=== PATIENT | female | born 1945 | race Caucasian/White ===

== ENCOUNTER 2016-08-08 12:49 | Observation (INO) | payer MEDICARE, BC ==
[~2016-08-08] VITALS: Ht 170.2 cm; Wt 86.8 kg
[~2016-08-08 12:49] MED LIST: AMLODIPINE10 MG OR; ASPIRIN 8181 MG PO; ASTRAGALUS OR; AVELOX400 MG OR; AVELOX400 MG PO; BABY ASPIRIN81 MG OR; CARTIA XT180 MG/24 PO; CIPROFLOXACN500 MG PO; COMBIVENT RESPIMAT IN; COQ10150 MG OR; COZAAR100 MG PO; DILTIAZEM60 M1 PO; DONEPEZIL10 MG PO; FOSAMAX10 MG OR; HYDRALAZINE10 MG PO; IMDUR30 MG PO; IPRATROPIUM BROMIDE/ IN; ISOSORB DIN30 MG OR; ISOSORB MONO30 MG PO; LIPITOR20 MG OR; LORTAB 5/3255 MG PO; LOVASTATIN40 MG PO; METFORMIN500 MG OR; METFORMIN500 MG PO; MONTELUKAST SOD10 MG PO; MULTIVITAMI1 OR; NEXIUM40 M1 PO; NEXIUM40 MG PO; OMEGA-31000 MG OR; ONDANSETRON4 MG PO; OSCAL 500/1 TAB OR; PREDNISONE10 MG PO; PREVACID30 M1 PO; SINGULAIR10 MG OR; SYMBICORT 80-4.5MCG IN; ULTRAM50 M1 PO; [UNRECOGNIZED DRUG - OTHER]; [UNRECOGNIZED DRUG - OTHER] OR
--- NOTE | 2016-08-08 12:49 | NUR ---
PT TO ROOM 15 VIA STRETCHER BY EMS.
[2016-08-08 13:17] LABS: HEMATOCRIT 38.4 % (37.0-47.0); IMMATURE GRANULOCYTES 0.7 % (0.0-1.0); MEAN CELL VOLUME 85.7 fL CALC (80.0-100.0); MEAN CORPUSCULAR HGB CONC 33.9 g/L CALC (32.0-36.0); NEUT# 6.65 thou/uL (2.00-7.15); RED BLOOD COUNT 4.48 mill/uL (4.20-5.60); RED CELL DISTRI WIDTH 15.5 % (11.5-15.5)
[2016-08-08 13:36] LABS: ALBUMIN 4.1 g/dL (3.2-5.0); BILIRUBIN, TOTAL 0.8 mg/dL (0.0-1.4); CALCIUM 9.8 mg/dL (8.4-10.2); CREATININE 1.3 mg/dL (0.5-1.0); POTASSIUM 3.1 mmol/l (3.5-5.1); TOTAL PROTEIN 7.9 g/dL (6.3-8.2)
[2016-08-08 13:45] LABS: INTERNATIONAL NORMALIZED RATIO 0.9 RATIO (0.7-1.3); PROTHROMBIN TIME 10.2 SECONDS (9.0-12.5)
[2016-08-08] MEDS ORDERED: TYLENOL325 MG PO (14:09)
[2016-08-08] MEDS ORDERED: FLUTICASONE50 MCG (14:10)
[2016-08-08] MEDS ORDERED: AMLODIPINE5 MG PO (14:10)
[2016-08-08] MEDS ORDERED: FUROSEMIDE40 MG PO (14:11)
[2016-08-08] MEDS ORDERED: HYDROCHLOROT25 MG PO (14:12)
[2016-08-08] MEDS ORDERED: METOLAZONE2.5 MG PO (14:13)
[2016-08-08] MEDS ORDERED: MILK OF MAG30 ML/UDC PO (14:14)
[2016-08-08] MEDS ORDERED: MINOCIN100 MG PO (14:14)
[2016-08-08] MEDS ORDERED: PATADAY OU (14:15)
[2016-08-08] MEDS ORDERED: PREDNISONE10 MG PO (14:16)
[2016-08-08] MEDS ORDERED: SPIRONOLACT25 MG PO (14:16)
[2016-08-08] MEDS ORDERED: TRAMADOL HCL50 MG PO (14:17)
[2016-08-08] MEDS ORDERED: LANTUS100 MG/ML SC (14:19)
[2016-08-08] MEDS ORDERED: LEVEMIR1000 UNITS SC (14:21)
[2016-08-08 14:23] LABS: URINE BILIRUBIN - DIPSTICK NEGATIVE (NEGATIVE); URINE BLOOD DIPSTICK NEGATIVE (NEGATIVE); URINE CLARITY CLEAR; URINE COLOR YELLOW; URINE GLUCOSE - DIPSTICK NEGATIVE (NEGATIVE); URINE KETONE NEGATIVE (NEGATIVE); URINE LEUK ESTERASE NEGATIVE (NEGATIVE); URINE NITRITE - DIPSTICK NEGATIVE (Negative); URINE PROTEIN - DIPSTICK NEGATIVE (NEG-TRACE); URINE UROBILINOGEN - DIPSTICK 0.2 E.U./dL (0.2)
--- NOTE | 2016-08-08 14:54 | NUR ---
PT PROVIDED BSC, URINE SPECIMEN COLLECTED. NO COMPLAINTS OF CHEST PAIN OR SHORTNESS OF BREATH SINCE ARRIVAL.
--- NOTE | 2016-08-08 16:13 | NUR ---
PT ARRIVED FROM ER VIA STRETCHER ACCOMPANIED BY STAFF. IV SITE IS FREE FROM REDNESS OR EDEMA. TELE MONITOR IN PLACE.
--- NOTE | 2016-08-08 16:24 | NUR ---
PT TAKEN TO ROOM 278 WITHOUT INCIDENT, REPORT WAS TO DEVIN SKINNER.
[2016-08-08 16:55] VITALS: BP 136/64
--- NOTE | 2016-08-08 17:00 | NUR ---
ASSESSMENT IS COMPLETED; IV SITE IS FREE FROM REDNESS OR EDEMA/. TELE MONITOR IN PLACE. CONTINUE TO OBSERVE AND MONITOR.
[2016-08-08 19:00] VITALS: BP 128/72
--- NOTE | 2016-08-08 20:00 | NUR ---
PATIENT RESTING IN BED AT THIS TIME-AWAKE ALERT WITH O2 VIA NASAL CANNULA IN PLACE. PATIENT WITH FLAT AFFECT AND SLOW TO ANSWER QUESTIONS-PATIENT WITH HISTORY OF DEMENTIA. PATIENT DENIES ANY PAIN AT THIS TIME. PATIENT WITH HEP LOCK TO LEFT FOREARMSITE APPEARS HEALTHY WITH GOOD BLOOD RETURN. SAFETY PRECAUTIONS REINFORCED. CALL LIGHT IN REACH. WILL CONT TO MONITOR.
[2016-08-08 23:45] VITALS: BP 125/78
--- NOTE | 2016-08-09 | NUR ---
PATIENT APPEARS SLEEPING WITH EYES CLOSED AT THIS TIME. O2 VIA NASAL CANNULA IN PLACE. CALL LIGHT IN REACH. WILL CONT TO MONITOR.
--- NOTE | 2016-08-09 03:05 | NUR ---
PATIENT C/O RIGHT ARM PAIN-8/10 ON PAIN SCALE. PATIENT MEDICATED WITH ULTRAM 50MG PO FOR PAIN. CALL LIGHT IN REACH. WILL CONT TO MONITOR.
[2016-08-09 03:15] VITALS: BP 124/76
--- NOTE | 2016-08-09 03:15 | NUR ---
PATIENT C/O RIGHT ARM AND CHEST PAIN. VS TAKEN AND UNCHANGED. STAT EKG DONE WITH NO CHANGES NOTED. SKIN IS WARM AND DRY. O2 NASAL CANNULA IN PLACE. PATIENT MEDICATED WITH ULTRAM FOR PAIN. CALL LIGHT IN REACH. WILL CONT TO MONITOR.
--- NOTE | 2016-08-09 04:06 | NUR ---
PATIENT APPEARS SLEEPING IN NO DISTRESS AT THIS TIME. CALL LIGHT IN REACH. WILL CONT TO MONITOR.
[2016-08-09 06:18] LABS: CALCIUM 9.9 mg/dL (8.4-10.2); CREATININE 1.3 mg/dL (0.5-1.0); POTASSIUM 2.7 mmol/l (3.5-5.1)
--- NOTE | 2016-08-09 06:54 | NUR ---
DR. TONEY NOTIFIED OF CO2-40. NO NEW ORDERS RECIEVED.
[2016-08-09 08:11] VITALS: BP 144/69
--- NOTE | 2016-08-09 08:11 | NUR ---
ASSESSMENT IS COMPLETED: IV SITE IS FREE FROM REDNESS OR EDEMA. TELE MONITOR IN PLACE. CONITNUE TO OBSERVE AND MONITOR.
--- NOTE | 2016-08-09 12:15 | NUR ---
IV SITE IS FREE FROM REDNESS OR EDEMA. FAMILY CAME TO VISIT WITH PT. CONTINUE TO OSBERVE AND MONITOR.
[2016-08-09 12:25] VITALS: BP 120/65
[2016-08-09 14:03] LABS: CALCIUM 9.6 mg/dL (8.4-10.2); CREATININE 1.4 mg/dL (0.5-1.0); POTASSIUM 3.5 mmol/l (3.5-5.1)
[2016-08-09 16:15] VITALS: BP 136/69
--- NOTE | 2016-08-09 16:15 | NUR ---
PT IS RELAXING IN BED WITH NO DISTRESS NOTED. IV SITE IS FREE FROM REDNESS OR EDEMA. TELE MONTIOR IN PLACE.
[2016-08-09 19:35] VITALS: BP 124/65
--- NOTE | 2016-08-09 20:00 | NUR ---
PATIENT SITTING UP IN BED AWAKE ALERT AND ORIENTED AT THIS TIME. PATIENT WITH IVF PATENT AND INFUSING VIA LEFT FOREARM IV SITE AT 80CC/HR. O2 VIA NASAL CANNULA IN PLACE. SAFETY PRECAUTIONS REINFORCED. CALL LIGHT IN REACH. WILL CONT TO MONITOR.
[2016-08-09 21:47] VITALS: BP 136/67
--- NOTE | 2016-08-09 21:49 | NUR ---
WHEN PATIENT BEING ASSISTED FROM TOILET IN BR TO STAND BECAME UNSTEADY ON HER FEET WITH BLAST FURNACE OPERATOR PRESENT AND WAS LOWERED TO THE FLOOR. PATIENT WAS THEN ASSISTED TO WHEELCHAIR WITH 3 STAFF MEMBERS AND THEN ASSISTED BACK TO THE BED. PATIENT DENIES ANY INJURIES. PATIENT DID NOT HIT HER HEAD. PATIENT ASSISTED WITH ORAL HYGEINE AND WAS MEDICATED FOR CHRONIC RIGHT SHOULDER PAIN WITH ULTRAM ORDERED FOR PAIN. VS TAKEN AND RECORDED. DR. MOSHER NOTIFIED. SAFETY PRECAUTIONS REINFORCED. CALL LIGHT IN REACH. WILL CONT TO MONITOR.
--- NOTE | 2016-08-10 00:03 | NUR ---
PATIENT APPEARS SLEEPING WITH O2 VIA NASAL CANNULA IN PLACE. IVF PATENT AND INFUSING AT 80CC/HR. CALL LIGHT IN REACH. WILL CONT TO MONITOR.
[2016-08-10 00:05] VITALS: BP 120/64
[2016-08-10 03:40] VITALS: BP 147/85
--- NOTE | 2016-08-10 04:00 | NUR ---
PATIENT APPEARS SLEEPING WITH O2 VIA NASAL CANNULA IN PLACE. IVF PATENT AND INFUSING AT 80CC/HR. CA;LL LIGHT IN REACH. WILL CONT TO MONITOR
[2016-08-10 04:40] VITALS: BP 157/82
[2016-08-10 05:43] LABS: HEMOGLOBIN 10.7 g/dl (12.0-16.0); IMMATURE GRANULOCYTES 1.3 % (0.0-1.0); MEAN CELL VOLUME 89.7 fL CALC (80.0-100.0); MEAN CORPUSCULAR HGB 29.1 pG CALC (26.0-32.0); MEAN CORPUSCULAR HGB CONC 32.4 g/L CALC (32.0-36.0); NEUT# 4.36 thou/uL (2.00-7.15); RED BLOOD COUNT 3.68 mill/uL (4.20-5.60); RED CELL DISTRI WIDTH 15.8 % (11.5-15.5)
[2016-08-10 06:20] LABS: CALCIUM 8.8 mg/dL (8.4-10.2); CREATININE 1.1 mg/dL (0.5-1.0); POTASSIUM 3.3 mmol/l (3.5-5.1)
[2016-08-10 06:22] LABS: ALBUMIN 2.9 g/dL (3.2-5.0); CREATININE 1.1 mg/dL (0.5-1.0); POTASSIUM 3.8 mmol/l (3.5-5.1)
--- NOTE | 2016-08-10 08:05 | NUR ---
ASSESSMENT IS COMPLETED: IV SITE IS FREE FROM REDNESS OR EDEMA. PT'S BACK HAS A RASH. INFORMED RE: RASH. TELE MONITOR IN PLACE. CONTINUE TO OSBERVE AND MONITOR.
--- NOTE | 2016-08-10 08:26 | NUR ---
PT HAS SHINGLES ON HER RIGHT BACK, PLACED PT ON CONTACT.
[2016-08-10 08:31] LABS: ANION GAP 11 (6-22 (CALC)); BUN 29 mg/dL (8-23); BUN/CREATININE RATIO 28 (12-20 (CALC)); CALCIUM 8.8 mg/dL (8.4-10.2); CARBON DIOXIDE 33 mmol/l (22-30); CHLORIDE 91 mmol/l (95-108); GFR 55 ML/MIN (>=60 (CALC)); GFR FOR AFR.AMER. > 60 ML/MIN (>=60 (CALC)); GLUCOSE 111 mg/dL (82-115); SODIUM 131 mmol/l (137-146)
--- NOTE | 2016-08-10 12:00 | NUR ---
PT IS RELAXING IN BED WITH NO DISTRESS NOTED. IV SITE IS FREE FROM REDNESS OR EDEMA.
[2016-08-10 13:16] LABS: HEMATOCRIT 32.8 % (37.0-47.0); HEMOGLOBIN 10.7 g/dl (12.0-16.0); MEAN CELL VOLUME 89.4 fL CALC (80.0-100.0); MEAN CORPUSCULAR HGB 29.2 pG CALC (26.0-32.0); MEAN CORPUSCULAR HGB CONC 32.6 g/L CALC (32.0-36.0); RED BLOOD COUNT 3.67 mill/uL (4.20-5.60); RED CELL DISTRI WIDTH 15.5 % (11.5-15.5)
[2016-08-10 15:59] VITALS: BP 127/65
--- NOTE | 2016-08-10 16:00 | NUR ---
PT IS MOVED TO A DIFFERENT ROOM DUE TO SHINGLES AND HOSPITAL PROTOCOL FOR PRECAUTIONS. PT VERBALIZED UNDERSTANDING.
[2016-08-10 19:35] VITALS: BP 128/53
--- NOTE | 2016-08-10 20:00 | NUR ---
PATIENT RESTING IN BED AT THIS TIME-AWAKE ALERT AND ORIENTEDX3. PATIENT ON AIRBOURNE PRECAUTIONS FOR SHINGLES. PATIENT WITH UNILATERAL RASH TO RIGHT BACK. PATIENT WITH HEP LOCK TO LEFT FOREARM. SITE APPEARS HEALTHY AT THIS TIME. SAFETY PRECAUTIONS REINFORCED. CALL LIGHT IN REACH. WILL CONT TO MONITOR.
[2016-08-10 23:50] VITALS: BP 130/66
--- NOTE | 2016-08-11 | NUR ---
PATIENT APPEARS SLEEPING AT THIS TIME. CALL LIGHT IN REACH. WILL CONT TO MONITOR.
[2016-08-11 03:50] VITALS: BP 130/56
--- NOTE | 2016-08-11 04:30 | NUR ---
PATIENT UP TO BSC TO VOID. PICTURE TAKEN OF RIGHT BACK/BREAST AND PLACED IN CHART. SAFETY PRECAUTIONS REINFORCED. CALL LIGHT IN REACH. WILL CONT TO MONITOR.
[2016-08-11 05:15] LABS: CALCIUM 9.3 mg/dL (8.4-10.2); CREATININE 1.1 mg/dL (0.5-1.0); POTASSIUM 3.5 mmol/l (3.5-5.1)
[2016-08-11] MEDS ORDERED: VALTREX500 MG PO (06:33)
[2016-08-11] MEDS ORDERED: PANTOPRAZOLE SO40 M1 PO (06:34)
[2016-08-11] MEDS ORDERED: LASIX 20 MG20 MG/TAB PO (06:34)
[2016-08-11] MEDS ORDERED: METOCLOPRAM10 MG PO (06:35)
[2016-08-11] MEDS ORDERED: PREDNISONE5 MG PO (06:35)
--- NOTE | 2016-08-11 06:45 | NUR ---
REPORT RECEIVED FROM RICHARD KEYES. PT RESTING COMFORTABY DENIES PAIN AT THIS TIME. VSS. WILL CONTINUE TO MONITOR.
--- NOTE | 2016-08-11 10:32 | NUR ---
PT WAS SEEN RESTING IN BED W/ HOB ELEVATED. PERFORMED AROM EX WHILE SHORT SITTING ON EDGE OF BED. AMBULATED FROM BED TO COUCH AND BACK TO BED WITH RW AND CGA FOR SAFETY. PT APPEARED MORE STEADY/STABLE TODAY ON AMBULATION. LEFT PT W/ CALL RICHARD BESIDE HER. NO ADVERSE RXNS NOTED OR REPORTED AT THE END OF TX.
--- NOTE | 2016-08-11 12:00 | NUR ---
PHOTO OBTAINED PRIOR TO DISCHARGE OF SHINGLES.
--- NOTE | 2016-08-11 12:15 | NUR ---
PT DECLINED ELEUTERIO HERNANDEZ. HAS VISITORS IN ROOM. WILL CALL IF IN DISTRESS.
[2016-08-11 14:04] VITALS: BP 129/49
--- NOTE | 2016-08-11 14:09 | NUR ---
PT ASSISTED TO BSC AT THIS TIME, VOIDED 400CC, PT UPDATED OF MARCIAL OF DEPOARTURE TO [facility], STATES UNDERSTANDING. DENIES CLOTHING, WILL BE D/C'D WITH HOSPITAL GOWN. IV ISTE REMOVED AT THIS TIME, IN REGARDS TO DISCHARGE PLANNING
--- NOTE | 2016-08-11 14:47 | NUR ---
REPORT CALLED TO [facility], SPOKE WITH RICHARD MASCORRO
--- NOTE | 2016-08-11 16:02 | NUR ---
Discharge instructions given. Patient verbalizes understanding of same. Discharged in stable condition via Wheelchair to Home with staff. All belongings sent with pt.
== END 2016-08-11 16:02 ==
LOC: ED 12:49 → ED-I 14:58 → ED 15:31 → MS2 15:32
PROVIDERS: Emergency Medicine; Internal Medicine Nephrology; ADMIT Internal Medicine; ATTEND Internal Medicine
DX: R07.9 Chest pain, unspecified (principal); E11.22 Type 2 diabetes mellitus with diabetic chronic kidney disease; I12.9 Hypertensive chronic kidney disease with stage 1 through stage 4 chronic kidney disease, or unspecified chronic kidney disease; N18.3 Chronic kidney disease, stage 3 (moderate); J44.9 Chronic obstructive pulmonary disease, unspecified; K21.9 Gastro-esophageal reflux disease without esophagitis; E66.9 Obesity, unspecified; G30.9 Alzheimer's disease, unspecified; F02.80 Dementia in other diseases classified elsewhere, unspecified severity, without behavioral disturbance, psychotic disturbance, mood disturbance, and anxiety; E86.0 Dehydration; E87.1 Hypo-osmolality and hyponatremia; E87.6 Hypokalemia; E87.8 Other disorders of electrolyte and fluid balance, not elsewhere classified; E87.3 Alkalosis; G47.33 Obstructive sleep apnea (adult) (pediatric); N17.9 Acute kidney failure, unspecified; E44.0 Moderate protein-calorie malnutrition; B02.9 Zoster without complications; Z87.891 Personal history of nicotine dependence

== ENCOUNTER 2017-07-19 08:00 | Day surgery (SDC) | payer MEDICARE, BC ==
[~2017-07-19] VITALS: Ht 170.2 cm; Wt 71.2 kg
[~2017-07-19 08:00] MED LIST changes: +ALBUTEROL SUL0.083 % IN; +AMLODIPINE5 MG PO; +FLUTICASONE50 MCG; +FUROSEMIDE40 MG PO; +GABAPENTIN100 MG PO; +HYDROCHLOROT25 MG PO; +LANTUS100 MG/ML SC; +LASIX 20 MG20 MG/TAB PO; +LEVEMIR1000 UNITS SC; +METOCLOPRAM10 MG PO; +METOLAZONE2.5 MG PO; +MILK OF MAG30 ML/UDC PO; +MINOCIN100 MG PO; +MIRALAX3350 NF PO; +PANTOPRAZOLE SO40 M1 PO; +PATADAY OU; +PREDNISONE5 MG PO; +SPIRONOLACT25 MG PO; +TRAMADOL HCL50 MG PO; +TYLENOL325 MG PO; +VALTREX500 MG PO
[2017-07-19 13:59] VITALS: BP 134/64
== END 2017-07-19 10:49 | disposition home or self-care (01) ==
LOC: ENDO 08:00
PROVIDERS: ATTEND Surgery
PROC: 0DBL8ZX Excision of Transverse Colon, Via Natural or Artificial Opening Endoscopic, Diagnostic (ICD-10-PCS; principal; 2017-07-19)
DX: Z12.11 Encounter for screening for malignant neoplasm of colon (principal); D12.3 Benign neoplasm of transverse colon

== ENCOUNTER 2017-12-05 06:21 | Day surgery (SDC) | payer MEDICARE, BC ==
[~2017-12-05 06:21] MED LIST changes: +FLONASE AL50 MCG/AC1 NAB; +MINERAL PO; +MULTIVITAMIN AD1 TA1 PO; +PROAIR HFA IN; +SYMBICORT1 AE1 IN
[2017-12-05] MEDS ORDERED: KEFLEX500 MG PO (10:38)
[2017-12-05 10:54] VITALS: BP 100/54
== END 2017-12-05 11:10 | disposition home or self-care (01) ==
LOC: ORM 06:21
PROVIDERS: ATTEND Plastic Surgery
PROC: 0HX6XZZ Transfer Back Skin, External Approach (ICD-10-PCS; principal; 2017-12-05)
PROC: 0HB6XZZ Excision of Back Skin, External Approach (ICD-10-PCS; 2017-12-05)
DX: C44.519 Basal cell carcinoma of skin of other part of trunk (principal)

== ENCOUNTER 2018-07-19 15:18 | Emergency (ER) | payer MEDICARE, BC ==
[~2018-07-19] VITALS: Ht 162.6 cm; Wt 79.0 kg
[~2018-07-19 15:18] MED LIST changes: -ASPIRIN 81 LOW81 MG PO; -LIPITOR10 M1 PO
[2018-07-19] MEDS ORDERED: LIPITOR10 M1 PO (15:40)
[2018-07-19] MEDS ORDERED: ASPIRIN 81 LOW81 MG PO (15:41)
[2018-07-19 16:06] LABS: HEMATOCRIT 39.9 % (37.0-47.0); HEMOGLOBIN 13.2 g/dl (12.0-16.0); IMMATURE GRANULOCYTES 0.2 % (0.0-5.0); MEAN CELL VOLUME 92.8 fL CALC (80.0-100.0); MEAN CORPUSCULAR HGB 30.7 pG CALC (26.0-32.0); MEAN CORPUSCULAR HGB CONC 33.1 g/L CALC (32.0-36.0); NEUT# 4.67 thou/uL (2.00-7.15); RED BLOOD COUNT 4.3 mill/uL (4.20-5.60); RED CELL DISTRI WIDTH 14.1 % (11.5-15.5)
[2018-07-19 16:19] VITALS: BP 220/86
[2018-07-19 16:21] LABS: BILIRUBIN, TOTAL 0.6 mg/dL (0.0-1.4); CREATININE 1.7 mg/dL (0.5-1.0); POTASSIUM 4.6 mmol/l (3.5-5.1)
[2018-07-19 16:24] LABS: ALBUMIN 4.4 g/dL (3.2-5.0); TOTAL PROTEIN 8.1 g/dL (6.3-8.2)
[2018-07-19 16:33] LABS: URINE BILIRUBIN - DIPSTICK NEGATIVE (NEGATIVE); URINE BLOOD DIPSTICK NEGATIVE (NEGATIVE); URINE COLOR YELLOW; URINE GLUCOSE - DIPSTICK NEGATIVE (NEGATIVE); URINE KETONE NEGATIVE (NEGATIVE); URINE LEUK ESTERASE NEGATIVE (NEGATIVE); URINE NITRITE - DIPSTICK NEGATIVE (Negative); URINE PROTEIN - DIPSTICK 100 mg/dL (NEG-TRACE); URINE SPECIFIC GRAVITY 1.015; URINE UROBILINOGEN - DIPSTICK 0.2 E.U./dL (0.2)
== END 2018-07-19 16:35 | disposition short-term general hospital (02) ==
LOC: ED 15:18
PROVIDERS: Emergency Medicine
DX: I44.2 Atrioventricular block, complete (principal); R53.1 Weakness; R42 Dizziness and giddiness; R00.1 Bradycardia, unspecified; I10 Essential (primary) hypertension; E11.9 Type 2 diabetes mellitus without complications; E11.29 Type 2 diabetes mellitus with other diabetic kidney complication; N18.3 Chronic kidney disease, stage 3 (moderate)

== ENCOUNTER → 2018-07-19 | Outpatient (REF) | payer MEDICARE, BC ==
[~2018-07-19] MED LIST changes: +ASPIRIN 81 LOW81 MG PO; +KEFLEX500 MG PO; +LIPITOR10 M1 PO
[2018-07-19 07:50] LABS: URINE BILIRUBIN - DIPSTICK NEGATIVE (NEGATIVE); URINE BLOOD DIPSTICK NEGATIVE (NEGATIVE); URINE COLOR YELLOW; URINE GLUCOSE - DIPSTICK NEGATIVE (NEGATIVE); URINE KETONE NEGATIVE (NEGATIVE); URINE LEUK ESTERASE TRACE (NEGATIVE); URINE NITRITE - DIPSTICK NEGATIVE (Negative); URINE PROTEIN - DIPSTICK 100 mg/dL (NEG-TRACE); URINE SPECIFIC GRAVITY >=1.030; URINE UROBILINOGEN - DIPSTICK 0.2 E.U./dL (0.2)
[2018-07-19 07:51] LABS: HEMATOCRIT 40.8 % (37.0-47.0); MEAN CELL VOLUME 97.1 fL CALC (80.0-100.0); MEAN CORPUSCULAR HGB CONC 31.9 g/L CALC (32.0-36.0); RED BLOOD COUNT 4.2 mill/uL (4.20-5.60); RED CELL DISTRI WIDTH 14.3 % (11.5-15.5)
[2018-07-19 08:12] LABS: URINE SQUAMOUS EPITHELIAL CELL FEW EPI/hpf (0-FEW)
[2018-07-19 08:17] LABS: ALBUMIN 3.6 g/dL (3.2-5.0); BILIRUBIN, TOTAL 0.5 mg/dL (0.0-1.4); CHOLESTEROL HDL RATIO 3.1 (<4.4 (CALC)); CREATININE 1.7 mg/dL (0.5-1.0); POTASSIUM 4.5 mmol/l (3.5-5.1); TOTAL PROTEIN 6.6 g/dL (6.3-8.2)
[2018-07-19 08:43] LABS: TSH, 3RD GENERATION 4.39 uIU/mL (0.47 - 4.68)
== END | disposition home or self-care (01) ==
LOC: LAB 07:31
PROVIDERS: ATTEND Nurse Practitioner
DX: E11.29 Type 2 diabetes mellitus with other diabetic kidney complication (principal); I10 Essential (primary) hypertension; N18.3 Chronic kidney disease, stage 3 (moderate)

== ENCOUNTER 2019-11-17 07:28 | Emergency (ER) | payer MEDICARE ==
[~2019-11-17] VITALS: Ht 162.6 cm; Wt 95.0 kg
[~2019-11-17 07:28] MED LIST changes: +ASPIRIN 81 LOW81 MG PO; +LIPITOR10 M1 PO
[2019-11-17] MEDS ORDERED: NAPROXEN500 MG PO (09:10)
[2019-11-17 09:29] VITALS: BP 158/71
== END 2019-11-17 09:31 | disposition home or self-care (01) ==
LOC: ED 07:28
PROC: 0HQNXZZ Repair Left Foot Skin, External Approach (ICD-10-PCS; principal; 2019-11-17)
DX: S91.312A Laceration without foreign body, left foot, initial encounter (principal); S43.401A Unspecified sprain of right shoulder joint, initial encounter; E11.9 Type 2 diabetes mellitus without complications; I10 Essential (primary) hypertension; W18.2XXA Fall in (into) shower or empty bathtub, initial encounter; Y93.E1 Activity, personal bathing and showering; Y92.002 Bathroom of unspecified non-institutional (private) residence as the place of occurrence of the external cause

== ENCOUNTER 2021-10-05 14:10 | Observation (INO) | payer MEDICARE ==
[~2021-10-05] VITALS: Ht 162.6 cm; Wt 72.0 kg
[~2021-10-05 14:10] MED LIST changes: +NAPROXEN500 MG PO
[2021-10-05 15:20] LABS: ALKALINE PHOSPHATASE 103 u/l (38-126); ANION GAP 14 (6-22 (CALC)); BILIRUBIN, TOTAL 0.6 mg/dL (0.0-1.4); BUN 15 mg/dL (8-23); BUN/CREATININE RATIO 12 (12-20 (CALC)); CARBON DIOXIDE 24 mmol/l (22-30); CHLORIDE 106 mmol/l (95-108); CREATININE 1.2 mg/dL (0.5-1.0); GFR FOR AFR.AMER. 53 ML/MIN (>=60 (CALC)); GFR OTHER RACES 44 ML/MIN (>=60 (CALC)); SGOT/AST 28 u/l (9-36); SODIUM 140 mmol/l (137-146); TOTAL PROTEIN 7.3 g/dL (6.3-8.2)
[2021-10-05 15:30] LABS: HEMATOCRIT 46.3 % (37.0-47.0); HEMOGLOBIN 14.7 g/dl (12.0-16.0); IMMATURE GRANULOCYTES 0.1 % (0.0-5.0); MEAN CELL VOLUME 95.5 fL CALC (80.0-100.0); MEAN CORPUSCULAR HGB 30.3 pG CALC (26.0-32.0); MEAN CORPUSCULAR HGB CONC 31.7 g/dL CAL (32.0-36.0); NEUT# 4.8 thou/uL (2.00-7.15); RED BLOOD COUNT 4.85 mill/uL (4.20-5.60)
[2021-10-05 16:23] LABS: URINE BILIRUBIN - DIPSTICK NEGATIVE (NEGATIVE); URINE BLOOD DIPSTICK NEGATIVE (NEGATIVE); URINE COLOR YELLOW; URINE GLUCOSE - DIPSTICK NEGATIVE (NEGATIVE); URINE KETONE NEGATIVE (NEGATIVE); URINE LEUK ESTERASE NEGATIVE (NEGATIVE); URINE PH 6.5 (4.5-8.0); URINE PROTEIN - DIPSTICK NEGATIVE (NEG-TRACE); URINE UROBILINOGEN - DIPSTICK 0.2 E.U./dL (0.2)
[2021-10-05 16:29] LABS: URINE NITRITE - DIPSTICK NEGATIVE (Negative)
[2021-10-05] MEDS ORDERED: ARICEPT PO (16:57)
[2021-10-05] MEDS ORDERED: ANORO ELLIPTA 61 AER IN (16:58)
[2021-10-05] MEDS ORDERED: BUPROPN HCL300 MG PO (16:58)
[2021-10-05] MEDS ORDERED: PROTONIX40 M2 PO (16:59)
[2021-10-05] MEDS ORDERED: ATORVASTATIN CA10 MG PO (17:00)
[2021-10-05] MEDS ORDERED: MONTELUKAST SOD10 MG PO (17:01)
[2021-10-05] MEDS ORDERED: NORVASC5 M1 PO (17:01)
[2021-10-05] MEDS ORDERED: SPIRONOLACTONE25 MG PO (17:01)
[2021-10-05 20:20] VITALS: BP 157/60
[2021-10-06] VITALS (7 sets, daily range): BP systolic 123–136; BP diastolic 41–49
[2021-10-06 05:42] LABS: HEMOGLOBIN 14.9 g/dl (12.0-16.0); MEAN CELL VOLUME 94.7 fL CALC (80.0-100.0); MEAN CORPUSCULAR HGB 30.7 pG CALC (26.0-32.0); MEAN CORPUSCULAR HGB CONC 32.4 g/dL CAL (32.0-36.0); RED BLOOD COUNT 4.86 mill/uL (4.20-5.60); RED CELL DISTRI WIDTH 15.1 % (11.5-15.5)
[2021-10-06 05:58] LABS: ANION GAP 13 (6-22 (CALC)); BUN 12 mg/dL (8-23); BUN/CREATININE RATIO 13 (12-20 (CALC)); CARBON DIOXIDE 22 mmol/l (22-30); CHLORIDE 108 mmol/l (95-108); CREATININE 0.9 mg/dL (0.5-1.0); GFR FOR AFR.AMER. > 60 ML/MIN (>=60 (CALC)); GFR OTHER RACES > 60 ML/MIN (>=60 (CALC)); POTASSIUM 4.1 mmol/l (3.5-5.1); SODIUM 139 mmol/l (137-146)
[2021-10-06] MEDS ORDERED: CYANOCOBAL1000 MCG/M IM (07:16)
== END 2021-10-06 15:01 | disposition home health service (06) ==
LOC: ED 14:10 → ED-I 16:30 → ED 17:15 → MS2 17:16
PROVIDERS: Family Medicine; ADMIT Hospitalist; ATTEND Hospitalist
DX: R41.0 Disorientation, unspecified (principal); I12.9 Hypertensive chronic kidney disease with stage 1 through stage 4 chronic kidney disease, or unspecified chronic kidney disease; E11.22 Type 2 diabetes mellitus with diabetic chronic kidney disease; N18.30 Chronic kidney disease, stage 3 unspecified; G30.9 Alzheimer's disease, unspecified; F02.80 Dementia in other diseases classified elsewhere, unspecified severity, without behavioral disturbance, psychotic disturbance, mood disturbance, and anxiety; J43.9 Emphysema, unspecified; F41.9 Anxiety disorder, unspecified; F32.A Depression, unspecified; G47.33 Obstructive sleep apnea (adult) (pediatric); E66.9 Obesity, unspecified; K21.9 Gastro-esophageal reflux disease without esophagitis; Z60.2 Problems related to living alone; Z68.27 Body mass index [BMI] 27.0-27.9, adult; Z20.822 Contact with and (suspected) exposure to COVID-19

== ENCOUNTER 2022-05-18 11:37 | Observation (INO) | payer MEDICARE ==
[~2022-05-18] VITALS: Ht 162.6 cm; Wt 77.0 kg
[2022-05-18] VITALS (27 sets, daily range): BP systolic 87–154; BP diastolic 50–96
[~2022-05-18 11:37] MED LIST changes: +ANORO ELLIPTA 61 AER IN; +ARICEPT PO; +ATORVASTATIN CA10 MG PO; +BUPROPN HCL300 MG PO; +CYANOCOBAL1000 MCG/M IM; +NORVASC5 M1 PO; +PROTONIX40 M2 PO; +SPIRONOLACTONE25 MG PO
--- NOTE | 2022-05-18 11:50 | NUR ---
PT TO ROOM W/STEADY GAIT.
[2022-05-18 12:23] LABS: BASO% 0.6 % (0-3); EOS% 3.8 % (0-8); HEMATOCRIT 46.7 % (37.0-47.0); HEMOGLOBIN 15.8 g/dl (12.0-16.0); IMMATURE GRANULOCYTES 0.1 % (0.0-5.0); LYMPH% 29.5 % (15-41); MEAN CELL VOLUME 92.3 fL CALC (80.0-100.0); MEAN CORPUSCULAR HGB 31.2 pG CALC (26.0-32.0); MEAN CORPUSCULAR HGB CONC 33.8 g/dL CAL (32.0-36.0); MONO% 7.5 % (2-13); NEUT# 4.99 thou/uL (2.00-7.15); NEUT% 58.5 % (42-76); RED BLOOD COUNT 5.06 mill/uL (4.20-5.60)
--- NOTE | 2022-05-18 13:00 | NUR ---
PT ON STRETCHER WITHOUT C/O AT THIS TIME. IVF BOLUS INFUSING WITHOUT DIFF. nO CONCERNS AT THIS TIME, AWAITING CT.
[2022-05-18 13:07] LABS: ALBUMIN 4.1 g/dL (3.2-5.0); ALKALINE PHOSPHATASE 143 u/l (38-126); AMYLASE 70 u/l (30-110); ANION GAP 14 (6-22 (CALC)); BILIRUBIN, TOTAL 0.7 mg/dL (0.0-1.4); BUN 20 mg/dL (8-23); BUN/CREATININE RATIO 15 (12-20 (CALC)); CARBON DIOXIDE 25 mmol/l (22-30); CHLORIDE 105 mmol/l (95-108); CREATININE 1.3 mg/dL (0.5-1.0); GFR FOR AFR.AMER. 48 ML/MIN (>=60 (CALC)); GFR OTHER RACES 40 ML/MIN (>=60 (CALC)); LIPASE 73 u/l (23-300); POTASSIUM 4.4 mmol/l (3.5-5.1); SGOT/AST 27 u/l (9-36); SODIUM 140 mmol/l (137-146); TOTAL PROTEIN 7.2 g/dL (6.3-8.2)
--- NOTE | 2022-05-18 14:13 | NUR ---
PT RETURNED FROM CT AND PLACED ON BEDPAN. SAMPLE COLLECTED AND SENT. NO CONCERNS AT THIS TIME
[2022-05-18 14:19] LABS: URINE BILIRUBIN - DIPSTICK NEGATIVE (NEGATIVE); URINE BLOOD DIPSTICK NEGATIVE (NEGATIVE); URINE COLOR YELLOW; URINE GLUCOSE - DIPSTICK NEGATIVE (NEGATIVE); URINE KETONE 15 mg/dL (NEGATIVE); URINE LEUK ESTERASE NEGATIVE (NEGATIVE); URINE PH 5.5 (4.5-8.0); URINE PROTEIN - DIPSTICK NEGATIVE (NEG-TRACE); URINE UROBILINOGEN - DIPSTICK 0.2 E.U./dL (0.2)
[2022-05-18 14:20] LABS: URINE NITRITE - DIPSTICK NEGATIVE (Negative)
--- NOTE | 2022-05-18 15:25 | NUR ---
sOAP SUDS ENEMA GIVEN WITH MINIMAL RESULTS OF SOFT BROWN STOOL.
--- NOTE | 2022-05-18 16:25 | NUR ---
PT RESTING ON STRETCHER WITHOUT C/O VOICED. NAD NOTED.
--- NOTE | 2022-05-18 18:25 | NUR ---
PT TO [facility] BED 260 VIA WC IN STABLE CONDITION. REPORT PROVIDED. IV SITE HEALTHY.
--- NOTE | 2022-05-18 19:05 | NUR ---
1818 REPORT RECEIVED FROM MOOSE IN ER. REPORT GIVEN TO Jarad MEDLEY RN @ 1900. PT HAS NOT ARRIVED TO FLOOR AT THIS TIME @ 1906.
[2022-05-19 03:44] VITALS: BP 122/50
[2022-05-19 03:59] VITALS: BP 122/50
--- NOTE | 2022-05-19 05:57 | NUR ---
PT AX3 VITAS STABLE, TOLRATE SNACKS WELLS, MED GIVEN , CALL LIGHTS WITHIN REACHED, BED ALARM ON, BED LOW POSITION, WILL CONT MONITOR
[2022-05-19 06:31] VITALS: BP 132/52
--- NOTE | 2022-05-19 08:50 | NUR ---
PT RESTING IN HIGH FOWLERS POSITION PT A/O PT ASSESSMENT AND VS COMPLETED. HEART RHYTHMNORM . RESPIRATIONS ON ROOM AIR. PT PERFORMING SELF CARE . IV SITE NOTED NS INFUSING PER EMAR. ALL SAFETY PRECAUTIONS IN PLACE WITH CALL LIGHT INREACH.
--- NOTE | 2022-05-19 10:59 | NUR ---
PT ASSISSTED TO BATHROOM PT HAD MODERATE BM . BROWN FORMED SOFT. DOCUMENTED .
--- NOTE | 2022-05-19 12:44 | NUR ---
PT TO BE DC.
[2022-05-19 14:46] VITALS: BP 136/53
--- NOTE | 2022-05-19 16:20 | NUR ---
PT FAMILY CALLED. FRIEND TO PATTERN ATTENDANT PT UNKNOWN TIME FRAME CRISELDA ROGEL RN INFORMED OF RIDE WAIT TIME.
--- NOTE | 2022-05-19 18:10 | NUR ---
Discharge instructions given. Patient verbalizes understanding of same. Discharged in stable condition via Wheelchair to Home with *Other. All belongings sent with pt.IV REMOVED.
== END 2022-05-19 18:10 ==
LOC: ED 11:37 → ED-I 16:48 → ED 17:01 → MS2 17:02
PROVIDERS: Nurse Practitioner; ADMIT Internal Medicine; ATTEND Internal Medicine
DX: K56.41 Fecal impaction (principal); I12.9 Hypertensive chronic kidney disease with stage 1 through stage 4 chronic kidney disease, or unspecified chronic kidney disease; E11.22 Type 2 diabetes mellitus with diabetic chronic kidney disease; N18.30 Chronic kidney disease, stage 3 unspecified; J43.9 Emphysema, unspecified; G30.9 Alzheimer's disease, unspecified; F02.80 Dementia in other diseases classified elsewhere, unspecified severity, without behavioral disturbance, psychotic disturbance, mood disturbance, and anxiety; K21.9 Gastro-esophageal reflux disease without esophagitis; E66.9 Obesity, unspecified; G47.33 Obstructive sleep apnea (adult) (pediatric)
CPT/HCPCS: J1650; Q9967

== ENCOUNTER 2022-07-04 09:15 | Day surgery (SDC) | payer MEDICARE ==
[~2022-07-04] VITALS: Ht 162.6 cm; Wt 68.9 kg
[~2022-07-04 09:15] MED LIST changes: +LOSARTAN POTASS25 MG PO; +PROLIA60 MG/ML SC; +SERTRALINE25 MG PO
[2022-07-04 11:44] VITALS: BP 144/64
== END 2022-07-04 12:10 | disposition home or self-care (01) ==
LOC: ENDO 09:15 → ORM 10:00 → ENDO 11:00 → ORM 12:05 → ENDO 12:10
PROVIDERS: ATTEND Internal Medicine Gastroenterology
PROC: 0DB38ZX Excision of Lower Esophagus, Via Natural or Artificial Opening Endoscopic, Diagnostic (ICD-10-PCS; principal; 2022-07-04)
PROC: 0DB68ZX Excision of Stomach, Via Natural or Artificial Opening Endoscopic, Diagnostic (ICD-10-PCS; 2022-07-04)
DX: K29.50 Unspecified chronic gastritis without bleeding (principal); K31.7 Polyp of stomach and duodenum; K22.81 Esophageal polyp; K44.9 Diaphragmatic hernia without obstruction or gangrene; I10 Essential (primary) hypertension; E78.5 Hyperlipidemia, unspecified; J44.9 Chronic obstructive pulmonary disease, unspecified; I25.10 Atherosclerotic heart disease of native coronary artery without angina pectoris; E11.22 Type 2 diabetes mellitus with diabetic chronic kidney disease; N18.9 Chronic kidney disease, unspecified; D63.8 Anemia in other chronic diseases classified elsewhere; E11.51 Type 2 diabetes mellitus with diabetic peripheral angiopathy without gangrene

== ENCOUNTER 2022-12-03 22:10 | Observation (INO) | payer MEDICARE, MEDICAID ==
[~2022-12-03] VITALS: Ht 162.6 cm; Wt 80.8 kg
[2022-12-03 22:18] VITALS: BP 143/59
--- NOTE | 2022-12-03 22:22 | NUR ---
PT CAME IN VIA EMS TO ROOM 10 FOR TRIAGE AND CARE. PT WAS LIFTED ONTO THE STRETCHER IN A SCOOP STRETCHER FROM EMS. PT IS IN OBVIOUS PAIN.
[2022-12-03 22:43] LABS: BASO% 0.5 % (0-3); EOS% 3.2 % (0-8); IMMATURE GRANULOCYTES 0.9 % (0.0-5.0); LYMPH% 25.6 % (15-41); MEAN CORPUSCULAR HGB 29.2 pG CALC (26.0-32.0); MEAN CORPUSCULAR HGB CONC 32.1 g/dL CAL (32.0-36.0); MONO% 7.8 % (2-13); NEUT# 6.79 thou/uL (2.00-7.15); RED BLOOD COUNT 4.35 mill/uL (4.20-5.60); RED CELL DISTRI WIDTH 13.6 % (11.5-15.5)
[2022-12-03 22:45] LABS: HEMATOCRIT 39.6 % (37.0-47.0); HEMOGLOBIN 12.7 g/dl (12.0-16.0)
[2022-12-03 22:54] VITALS: BP 149/73
[2022-12-03 22:58] LABS: ALBUMIN 3.7 g/dL (3.2-5.0); CREATININE 1.5 mg/dL (0.5-1.0); POTASSIUM 4.4 mmol/l (3.5-5.1); TOTAL PROTEIN 6.8 g/dL (6.3-8.2)
[2022-12-03 22:59] LABS: BILIRUBIN, TOTAL 0.3 mg/dL (0.02-1.3)
[2022-12-03 23:01] VITALS: BP 160/69
[2022-12-03 23:35] VITALS: BP 142/57
--- NOTE | 2022-12-03 23:42 | NUR ---
PT BACK IN RM, FOLLOWING CT, AT THIS TIME. PT IS IN PAIN SCREAMING OUT WITH ANY MOVEMENT OF R HIP OR R ARM. WILL CONTINUE TO MONITOR.
[2022-12-03 23:45] VITALS: BP 140/55
[2022-12-04] VITALS (11 sets, daily range): BP systolic 117–145; BP diastolic 45–61
--- NOTE | 2022-12-04 00:56 | NUR ---
PT RSTING IN BED WITH NAD AND VSS. PT MEDICATED FOR PAIN IN HER RHIP AND R SHOULDER. CAREGIVER AT BEDSIDE. WILL CONTINUE TO MONITOR.
--- NOTE | 2022-12-04 01:22 | NUR ---
PT BEING ADMITTED, CAREGIVER, ISABELLA JENSEN , MADE AWARE. PT PUT IN GOWN AND REPORT GIVEN.
--- NOTE | 2022-12-04 01:50 | NUR ---
PT ARRIVE TO UNIT ROOM 260 VIA STRECTER ACCOMPANIED BY ER STAFF. PT HAS FX TO PELVIS AND RIGHT SHOULDER. PT C/O OF PAIN WITH MOVEMENT. PT MEICATED IN ED. PT A&OX2 ABLE TO MAKES NEEDS KNOW AND FORTGETFUL. PT HAS AN ARM SLING TO RIGHT ARM. SKIN TEAR NOTED TO RIGHT WRIST. AREA CLEAN AND NON ADHISIVE DRESSING APPLIED. NO OTHER WOUNDS NOTED. PT CAN NOT TURN OR REPOSITION DUE TO FX AND PAIN. PT IS AT ROOM AIR. IV TO LFA 2OG PATENT AND FLUSHES WELL. PULSES PRESENT IN ALL EXTREMITIES. PIREWICK IN PLACE. CALL LIGHT IN REACH AND EBD IN LOWEST POSITION.
--- NOTE | 2022-12-04 01:51 | NUR ---
PT STATES BEEN A JEHOVAH WITNESS.
--- NOTE | 2022-12-04 02:00 | NUR ---
PT TRANSFERED TO [facility] RM 260 BY STRETCHZULY. PT STILL IN OBVIOUS PAIN BUT MADE COMFORTABLE POSSIBLE. KITTY RN, JOANNE REYESA AND CAMILA RAMOS ASSISTED IN MOVING PT OVER TO BED.
--- NOTE | 2022-12-04 02:20 | NUR ---
PT C/O HEADACHE DR PETER NOTIFIED AND ORDERED TYNELOL. ORDER FAX TO [facility].
--- NOTE | 2022-12-04 04:56 | NUR ---
PT IN BED AWAKE. BREATHING EVEN AND UNLABOED. REPORT PAIN WITH MOVEMENT AND A HEADACHE THAT IMPROVE AFTER TYLENOL. CALL LIGHT IN REACH AND BED IN LOWEST POSITION.
--- NOTE | 2022-12-04 08:00 | NUR ---
PT IN BED AWAKE AND ALERT X 2. PT C/O PAIN IN RIGHT SHOULDER AND PELVIS AT 8/10 ON PAIN SCALE, WILL MEDICATE WITH TYLENOL WHEN DUE. PT IV SITE # TO LFA CLEAN AND INTACT WITH NS @ 125 ML/HR INFUSING. LUNGS CLEAR. ABD SOFT WITH BS ACTIVE. PT HAS PUREWICK IN PLACE WILL MONITOR FOR OUTPUT. PT HAS CALL LIGHT WITHIN REACH AND ALL SAFETY MEASURES IN PLACE AT THIS TIME.
--- NOTE | 2022-12-04 12:00 | NUR ---
PT IN BED WITH HOB UP, ALERT AND ORIENTED; EATING LUNCH. PT WITH FRIEND AT BEDSIDE. C/O PAIN IN RIGHT SHOULDER AT 5/10 ON PAIN SCALE. WILL MEDICATE WITH PRN TYLENOL WHEN DUE. 600 ML OF CLEAR, YELLOW URINE OUTPUT FROM PUREWICK NOTED. PT HAS CALL LIGHT WIHTIN REACH AND ALL SAFETY MEASURES IN PLACE AT THIS TIME.
--- NOTE | 2022-12-04 16:00 | NUR ---
PT IN BED WITH HOB UP C/O PAIN AT 7/10 ON PAIN SCALE IN RIGHT SHOULDER AND LEFT LEG. TYLEMOL GIVEN ORDERED. PT HAS CALL LIGHT WIHTIN REACH AND ALL SAFETY MEASURES IN PLACE AT THIS TIME.
[2022-12-04 17:43] LABS: HEMATOCRIT 37.5 % (37.0-47.0); HEMOGLOBIN 11.9 g/dl (12.0-16.0); MEAN CELL VOLUME 92.4 fL CALC (80.0-100.0); MEAN CORPUSCULAR HGB 29.3 pG CALC (26.0-32.0); MEAN CORPUSCULAR HGB CONC 31.7 g/dL CAL (32.0-36.0); RED BLOOD COUNT 4.06 mill/uL (4.20-5.60); RED CELL DISTRI WIDTH 13.8 % (11.5-15.5)
[2022-12-04 17:56] LABS: CREATININE 1.3 mg/dL (0.5-1.0); POTASSIUM 4.9 mmol/l (3.5-5.1)
--- NOTE | 2022-12-04 19:50 | NUR ---
PT IN BED. PT C/O OF EXTREME PAIN AFTER CARE AND REPOSITION. PT MEDICATED ORDER PER JUN. SHITF ASSESSMNET COMPLETED. BREATHING IS EVEN AND UNLABORED. IV TO LFA 2OG. ROOM AIR. NO OTHER NEEDS OR CONCERN VOICED AT THIS TIME.
--- NOTE | 2022-12-05 00:45 | NUR ---
PT IN BED RESTING WITH EYES CLOSED BREATHING EVEN AND UNLABORED. NO S/S OF DISTGRESS NOTED CALL LIGHT IN REACGH AND BED IN LOWEST POSITION.
[2022-12-05 04:07] VITALS: BP 139/40
--- NOTE | 2022-12-05 04:16 | NUR ---
PT IN BED AWAKE. NO S/S OF DISTRESS NOTED. PT DENIES PAIN LONGEST SHE DOES NOT MOVE TO MUCH. BREATHING IS EVEN AND UNLABORED.
[2022-12-05 06:12] LABS: HEMATOCRIT 36.7 % (37.0-47.0); HEMOGLOBIN 11.7 g/dl (12.0-16.0); MEAN CELL VOLUME 94.1 fL CALC (80.0-100.0); MEAN CORPUSCULAR HGB CONC 31.9 g/dL CAL (32.0-36.0); RED BLOOD COUNT 3.9 mill/uL (4.20-5.60); RED CELL DISTRI WIDTH 14.1 % (11.5-15.5)
[2022-12-05 06:22] LABS: CREATININE 1.1 mg/dL (0.5-1.0); POTASSIUM 4.7 mmol/l (3.5-5.1); TOTAL PROTEIN 5.8 g/dL (6.3-8.2)
[2022-12-05 06:28] LABS: BILIRUBIN, TOTAL 0.6 mg/dL (0.02-1.3)
[2022-12-05 07:46] VITALS: BP 133/41
--- NOTE | 2022-12-05 08:00 | NUR ---
PT IN BED WITH HOB EATING BREAKFAST. PT IS ALERT AND ORIENTED X 2. PT HAS NO C/O PAIN AT THIS TIME. PT IV SITE # 20 TO LFA CLEAN AND INTACT WITH 125 ML/HR INFUSING. PT LUNGS CLEAR. BS ACTIVE. PUREWICK ON AND DRAINING DARK, YELLOW URINE. PT HAS SLING ON RIGHT ARM, FINGERS WARM WITH GOOD CAPILLARY REFILL. PT HAS CALL LIGHT WITHIN REACH AND ALL SAFETY MEASURES IN PLACE.
--- NOTE | 2022-12-05 12:00 | NUR ---
PT IN BED WITH HOB, EATING LUNCH. PT STATES SHE HAS NO PAIN AT THIS TIME UNLESS SHE IS MOVED. PT HAS CALL LIGHT WIHTIN REACH AND ALL SAFETY MEASURES IN PLACE. PT AND OT TO FO AN EVALUATION.
--- NOTE | 2022-12-05 16:00 | NUR ---
PT IN BED WITH HOB UP, PT HAS MILD PAIN AT 3/10 ON PAIN ON PAIN SCALE; TYLENOL GIVEN. PT LEGS ELVATED. PT CONTINUES TO HAVE CALL LIGHT WITHIN REACH AND ALL SAFETY MEASURES IN PLACE AT THIS TIME.
[2022-12-05 17:37] VITALS: BP 141/45
--- NOTE | 2022-12-05 19:17 | NUR ---
REPORT RECEIVED FROM Mari RAMACHANDRAN LPN
--- NOTE | 2022-12-05 19:50 | NUR ---
PATIENT ASSESMENT COMPLETED AT THIS TIME. PATIENT DENIES ANY CURRENT PAIN. PUREWICK IN PLACE DRAINING CLEAR YELLOW URINE TO SUCCION. CALL LIGHT AND BEDSIDE TABLE WITHIN REACH. BED ALAMR ON FOR SAFETY.
[2022-12-05 20:58] VITALS: BP 151/47
--- NOTE | 2022-12-06 | NUR ---
PATIENT RESTING IN BED, NO APPARENT DISTRESS NOTED. RESPIRATIONS EVEN AND UNLABORED, RISE AND FALL OF CHEST NOTED. CALL LIGHT AND BEDSIDE TABLE WITHIN REACH. BED ALARM ON FOR SAFETY.
[2022-12-06 04:08] VITALS: BP 141/48
--- NOTE | 2022-12-06 04:50 | NUR ---
PATIENT RESTING IN BED, NO APPARENT DISTRESS NOTED. PATIENT DENIES ANY CURRENT PAIN. RESPIRATIONS EVEN AND UNLABORED, RISE AND FALL OF CHEST NOTED. CALL LIGHT AND BEDSIDE TABLE WITHIN REACH. BED ALAMR ON FOR SAFETY.
[2022-12-06 05:21] LABS: BASO% 0.6 % (0-3); HEMATOCRIT 32.6 % (37.0-47.0); HEMOGLOBIN 10.4 g/dl (12.0-16.0); IMMATURE GRANULOCYTES 0.2 % (0.0-5.0); LYMPH% 20.6 % (15-41); MEAN CELL VOLUME 91.8 fL CALC (80.0-100.0); MEAN CORPUSCULAR HGB 29.3 pG CALC (26.0-32.0); MEAN CORPUSCULAR HGB CONC 31.9 g/dL CAL (32.0-36.0); NEUT# 5.74 thou/uL (2.00-7.15); NEUT% 64.6 % (42-76); RED BLOOD COUNT 3.55 mill/uL (4.20-5.60); RED CELL DISTRI WIDTH 14.3 % (11.5-15.5)
[2022-12-06 06:15] VITALS: BP 138/49
[2022-12-06 06:21] LABS: ALBUMIN 2.9 g/dL (3.2-5.0); BILIRUBIN, TOTAL 0.4 mg/dL (0.02-1.3); CREATININE 1.2 mg/dL (0.5-1.0); TOTAL PROTEIN 6.1 g/dL (6.3-8.2)
--- NOTE | 2022-12-06 08:00 | NUR ---
PT IN BED WITH HOB UP, EATING BREAKFAST. PT IS ALERT AND ORIENTED X 2. PT IV SITE TO LEFT ARM CLEAN AND INTACT WITH NS @ 10 ML/HR INFUSING. PT HAS SLING ON RIGHT ARM. FINGERS TO RIGHT HAND WITH GOOD CAPILLARY REFILL AND NO EDEMA NOTED. PT HAS PURE WICK IN PLACE DRAINING CLEAR, YELLOW URINE. ABD SOFT AND DISTENDED. NO EDEMA NOTED TO BLE, RLE ELVATED ON PILLOW. PT HAS CALL LIGHT WITHIN REACH AND ALL SAFETY MEASURES IN PLACE AT THIS TIME.
[2022-12-06 08:12] VITALS: BP 138/49
--- NOTE | 2022-12-06 09:15 | NUR ---
PT C/O PAIN @ 8/10 TO RIGHT SHOULBER, RIGHT HIP AND BACK. ULTRAM GIVEN ORDERED. CHANGED PT POSITION IN BED SLIGHTY BY LOWERING HEAD AND FEET. PT HAS CALL LIGHT WITHIN REACH AND ALL SAFETY MEASURES IN PLACE AT THIS TIME.
--- NOTE | 2022-12-06 12:30 | NUR ---
Pt arrived via wc from [facility]. orienated pt to room and call potter system. states pain on hip. repostioned. breathing even and unlabored. iv intact. report recieved from rufina SKINNER. states no other questions or concerns. fall/saftey precaution in place. call light within reach.
[2022-12-06] MEDS ORDERED: TRAMADOL HCL50 MG PO (12:45)
--- NOTE | 2022-12-06 14:18 | NUR ---
PT COMPLAINE D3/10 HIP PAIN. REPOSTIONED/ MEDICATED SE EMAR STATES NO OTHER NEEDS AT THIS TIME. FALL/SAFTEY PRECAUITON IN PLACE. CALL LIGHT WITHIN REACH
--- NOTE | 2022-12-06 14:24 | NUR ---
Discharge instructions given. Patient verbalizes understanding of same. Discharged in stable condition via [facility] with staff. All belongings sent with pt.
== END 2022-12-06 14:23 ==
LOC: ED 22:10 → ED-I 12-04 00:30 → ED 12-04 00:58 → MS2 12-04 00:59 → ICU 12-04 00:59
PROVIDERS: Emergency Medicine; Nurse Practitioner Family; ADMIT Student in an Organized Health Care Education/Training Program; ATTEND Student in an Organized Health Care Education/Training Program
PROC: 0T9B70Z Drainage of Bladder with Drainage Device, Via Natural or Artificial Opening (ICD-10-PCS; principal; 2022-12-03)
PROC: 0RSJXZZ Reposition Right Shoulder Joint, External Approach (ICD-10-PCS; 2022-12-03)
DX: S32.591A Other specified fracture of right pubis, initial encounter for closed fracture (principal); S42.251A Displaced fracture of greater tuberosity of right humerus, initial encounter for closed fracture; S09.90XA Unspecified injury of head, initial encounter; S40.022A Contusion of left upper arm, initial encounter; S40.021A Contusion of right upper arm, initial encounter; S80.12XA Contusion of left lower leg, initial encounter; S80.11XA Contusion of right lower leg, initial encounter; S41.111A Laceration without foreign body of right upper arm, initial encounter; I12.9 Hypertensive chronic kidney disease with stage 1 through stage 4 chronic kidney disease, or unspecified chronic kidney disease; E11.22 Type 2 diabetes mellitus with diabetic chronic kidney disease; N18.9 Chronic kidney disease, unspecified; J43.9 Emphysema, unspecified; K21.9 Gastro-esophageal reflux disease without esophagitis; G47.33 Obstructive sleep apnea (adult) (pediatric); F03.90 Unspecified dementia, unspecified severity, without behavioral disturbance, psychotic disturbance, mood disturbance, and anxiety; E66.9 Obesity, unspecified; W01.190A Fall on same level from slipping, tripping and stumbling with subsequent striking against furniture, initial encounter; Y93.89 Activity, other specified; Y92.009 Unspecified place in unspecified non-institutional (private) residence as the place of occurrence of the external cause; Z87.891 Personal history of nicotine dependence
CPT/HCPCS: J3420